=== PATIENT | male | born 1955 | race Caucasian/White ===

== ENCOUNTER → 2023-12-09 | Day surgery (SDC) | payer MEDICARE ==
[2023-12-07 15:01] LABS: BASOPHILS # (AUTO) 0.1 (0.0-0.1); BASOPHILS % 0.7 % (0.0-1.0); EOSINOPHILS # (AUTO) 0.3 (0.0-0.4); EOSINOPHILS % 3.4 % (0.0-6.0); HEMATOCRIT 41.2 % (38.2-49.6); HEMOGLOBIN 13.1 g/dL (14.0-18.0); LYMPHOCYTES # (AUTO) 2.1 (1.0-3.2); MEAN CORPUSCULAR HEMOGLOBIN 31.4 pg (28-32); MEAN CORPUSCULAR HGB CONC 31.8 g/dL (31-35); MEAN CORPUSCULAR VOLUME 98.8 fL (81-99); MONOCYTES # (AUTO) 0.7 (0.2-0.8); MONOCYTES % 9.5 % (4.4-11.3); NEUTROPHILS # (AUTO) 4.2 (2.1-6.9); NEUTROPHILS % 56.7 % (38.7-80.0); PLATELET COUNT 290 x10e3/uL (140-360); RED BLOOD COUNT 4.17 x10e6/uL (4.3-5.7); RED CELL DISTRIBUTION WIDTH 13.7 % (11.7-14.4); WHITE BLOOD COUNT 7.46 x10e3/uL (4.8-10.8)
[2023-12-07 15:22] LABS: ANION GAP 15.9 mmol/L (8-16); CALCIUM 9.1 mg/dL (8.4-10.2); CREATININE, SERUM 1.27 mg/dL (0.72-1.25); POTASSIUM 3.9 mmol/L (3.5-5.1)
[~2023-12-09] MED LIST: ACETAMINOPHEN 1000 MG/100 ML 100 ML IV ONE; ASPIRIN EC81 MG PO; ATIVAN0.5 MG PO; B COMPLEX1 EACH PO; BENADRYL25 M1 PO; BUPIVACAINE HCL 0.5% INJ 30 ML VIAL INJ ONE; CLOTRIMAZOLE15 GM TOP; COQ-10100 MG PO; DEXAMETHASONE SOD PHOS INJ 4 MG/ML SDV ONE; EPHEDRINE SULFATE INJ 50 MG/ML VIAL ONE; FAMOTIDINE20 MG PO; FENOFIBRATE145 MG PO; FENTANYL CITRATE/PF 100MCG/2 ML INJ ONE; FINASTERIDE5 MG PO; FISH OIL 500 M1 EACH PO; FLONASE ALLERG9.9 ML INH; FLORASTOR250 MG PO; FUROSEMIDE40 MG PO; GLIPIZIDE ER5 MG PO; HUMALOG MI100 UNIT/2 SQ; IOPAMIDOL 610MG/1ML 300 MG/ML VIAL IV ONE; IPRATROPIU0.2 MG/1 M INH; JANUVIA100 MG PO; LANTUS 3ML100 UNITS/ SC; LIDOCAINE 2%/ EPINEPHRINE 20ML MDV ONE; LIDOCAINE HCL 2% LOCAL INJ 5 ML SDV VIAL INJ ONE; LYRICA150 MG PO; METOPROLOL SUCC25 MG PO; MIDODRINE HCL5 MG PO; ONDANSETRON HCL INJ 2MG/ML 2ML 2 MG/ML VIAL ONE; PANTOPRAZOLE SO40 MG PO; PATADAY2.5 ML OU; PROPOFOL IV EMULSION 10 MG/ML 20 ML VIAL ONE; RANOLAZINE ER500 MG PO; SCOPOLAMINE 1 MG PATCH ONE; SERTRALINE HCL50 MG PO; SEVOFLURANE INHAL SOLN 250 ML PEN BTL ONE; TYLENOL325 MG PO; VITAMIN D3 COM1 EACH PO; VITAMIN E200 UNI3 PO; ZETIA10 MG PO; ZYRTEC10 M3 PO
[2023-12-09] MEDS: CEFTRIAXONE 1 GM VIAL ONE (10:59)
[2023-12-09] MEDS: GENTAMICIN 80MG/NS 100 ML 200 ML IV ONE (10:59)
[2023-12-09] MEDS: LACTATED RINGER'S 1,000 ML ONE (10:59)
[2023-12-09 12:13] VITALS: TEMP 98.6
[2023-12-09 13:20] VITALS: BP 153/82; PULSE 66; RESP 16; O2SAT 100
== END | disposition home or self-care (01) ==
LOC: OR 08:36
PROVIDERS: ATTEND Urology
DX: N39.0 Urinary tract infection, site not specified (principal); R33.8 Other retention of urine; N40.1 Benign prostatic hyperplasia with lower urinary tract symptoms; N31.9 Neuromuscular dysfunction of bladder, unspecified; R39.16 Straining to void; N39.41 Urge incontinence; Z98.890 Other specified postprocedural states; Q54.8 Other hypospadias; N32.89 Other specified disorders of bladder; G47.33 Obstructive sleep apnea (adult) (pediatric); I25.10 Atherosclerotic heart disease of native coronary artery without angina pectoris; I25.2 Old myocardial infarction; I10 Essential (primary) hypertension; J44.9 Chronic obstructive pulmonary disease, unspecified; E78.5 Hyperlipidemia, unspecified; K21.9 Gastro-esophageal reflux disease without esophagitis; G89.29 Other chronic pain; F41.9 Anxiety disorder, unspecified; Z88.6 Allergy status to analgesic agent; Z88.8 Allergy status to other drugs, medicaments and biological substances; Z01.810 Encounter for preprocedural cardiovascular examination; Z01.812 Encounter for preprocedural laboratory examination; Z01.818 Encounter for other preprocedural examination; Z99.81 Dependence on supplemental oxygen; Z79.82 Long term (current) use of aspirin; Z79.84 Long term (current) use of oral hypoglycemic drugs; Z79.4 Long term (current) use of insulin; Z95.5 Presence of coronary angioplasty implant and graft; Z86.73 Personal history of transient ischemic attack (TIA), and cerebral infarction without residual deficits; Z80.42 Family history of malignant neoplasm of prostate
CPT/HCPCS: 36415 ×2; 51040; 52005; 71046; 74420; 80048; 82948; 85025; 87086; 87186; 93005; C1769; J0131; J0696; J1100; J1580; J2003; J2004; J2405; J2704; J3010; J7121; Q9967